=== PATIENT | male | born 1940 | race Caucasian/White ===

== ENCOUNTER 2016-08-05 08:36 | Outpatient (CLI) | payer MEDICARE, OTHER | END 2016-08-05 08:37 | disposition home or self-care (01) | DX: I48.91 Unspecified atrial fibrillation (principal) ==

== ENCOUNTER 2016-09-25 10:28 | Outpatient (CLI) | payer MEDICARE, OTHER | END 2016-09-25 10:29 | disposition home or self-care (01) | DX: I48.91 Unspecified atrial fibrillation (principal) ==

== ENCOUNTER 2016-10-03 15:05 | Outpatient (CLI) | payer MEDICARE, OTHER | END 2016-10-03 15:06 | disposition home or self-care (01) | LOC: LAB.F 15:05 | PROVIDERS: ATTEND Internal Medicine Cardiovascular Disease | DX: I48.91 Unspecified atrial fibrillation (principal) | CPT/HCPCS: 85610 ==

== ENCOUNTER 2016-11-27 09:32 | Outpatient (CLI) | payer MEDICARE, OTHER | END 2016-11-27 09:33 | disposition home or self-care (01) | LOC: LAB.F 09:32 | PROVIDERS: ATTEND Internal Medicine Cardiovascular Disease | DX: I48.91 Unspecified atrial fibrillation (principal) | CPT/HCPCS: 85610 ==

== ENCOUNTER 2017-02-16 08:05 | Outpatient (CLI) | payer MEDICARE, OTHER | END 2017-02-16 08:06 | disposition home or self-care (01) | LOC: LAB.F 08:05 | PROVIDERS: ATTEND Internal Medicine Cardiovascular Disease | DX: I48.91 Unspecified atrial fibrillation (principal) | CPT/HCPCS: 85610 ==

== ENCOUNTER 2017-04-07 11:25 | Outpatient (CLI) | payer MEDICARE, OTHER | END 2017-04-07 11:26 | disposition home or self-care (01) | LOC: LAB.F 11:25 | PROVIDERS: ATTEND Internal Medicine Cardiovascular Disease | DX: I48.91 Unspecified atrial fibrillation (principal) | CPT/HCPCS: 85610 ==

== ENCOUNTER 2017-07-18 12:32 | Outpatient (CLI) | payer MEDICARE, OTHER | END 2017-07-18 12:33 | disposition home or self-care (01) | LOC: LAB 12:32 | PROVIDERS: ATTEND Internal Medicine Cardiovascular Disease | DX: I48.91 Unspecified atrial fibrillation (principal) | CPT/HCPCS: 85610 ==

== ENCOUNTER 2017-09-09 11:16 | Outpatient (CLI) | payer MEDICARE, OTHER | END 2017-09-09 11:17 | disposition home or self-care (01) | LOC: LAB.F 11:16 | PROVIDERS: ATTEND Internal Medicine Cardiovascular Disease | DX: I48.91 Unspecified atrial fibrillation (principal) | CPT/HCPCS: 85610 ==

== ENCOUNTER 2017-09-22 08:00 | Outpatient (CLI) | payer MEDICARE, OTHER ==
[2017-09-22 17:40] LABS: PT - PROTHROMBIN TIME 107.9 secs (9.9-12.6)
[2017-09-22 17:55] LABS: INR 10.5 (0.8-1.2)
== END 2017-09-22 08:01 | disposition home or self-care (01) ==
LOC: LAB.F 08:00
PROVIDERS: ATTEND Internal Medicine Cardiovascular Disease
DX: I48.91 Unspecified atrial fibrillation (principal)
CPT/HCPCS: 36415; 85610

== ENCOUNTER 2017-09-25 10:25 | Outpatient (CLI) | payer MEDICARE, OTHER | END 2017-09-25 10:26 | disposition home or self-care (01) | LOC: LAB.F 10:25 | PROVIDERS: ATTEND Pharmacist | DX: I48.91 Unspecified atrial fibrillation (principal); Z79.01 Long term (current) use of anticoagulants | CPT/HCPCS: 85610 ==

== ENCOUNTER 2017-10-01 13:43 | Outpatient (CLI) | payer MEDICARE, OTHER | END 2017-10-01 13:44 | disposition home or self-care (01) | LOC: LAB.F 13:43 | PROVIDERS: ATTEND Pharmacist | DX: I48.91 Unspecified atrial fibrillation (principal); Z79.01 Long term (current) use of anticoagulants | CPT/HCPCS: 85610 ==

== ENCOUNTER 2017-11-06 14:53 | Outpatient (CLI) | payer MEDICARE, OTHER | END 2017-11-06 14:54 | disposition home or self-care (01) | LOC: LAB.F 14:53 | PROVIDERS: ATTEND Pharmacist | DX: I48.91 Unspecified atrial fibrillation (principal); Z79.01 Long term (current) use of anticoagulants | CPT/HCPCS: 85610 ==

== ENCOUNTER 2017-11-12 09:59 | Outpatient (CLI) | payer MEDICARE, OTHER | END 2017-11-12 10:00 | disposition home or self-care (01) | LOC: LAB.F 09:59 | PROVIDERS: ATTEND Pharmacist | DX: I48.91 Unspecified atrial fibrillation (principal); Z79.01 Long term (current) use of anticoagulants | CPT/HCPCS: 85610 ==

== ENCOUNTER 2017-11-20 09:25 | Outpatient (CLI) | payer MEDICARE, OTHER | END 2017-11-20 09:26 | disposition home or self-care (01) | LOC: LAB.F 09:25 | PROVIDERS: ATTEND Pharmacist | DX: I48.91 Unspecified atrial fibrillation (principal); Z79.01 Long term (current) use of anticoagulants | CPT/HCPCS: 85610 ==

== ENCOUNTER 2017-12-30 14:37 | Outpatient (CLI) | payer MEDICARE, OTHER | END 2017-12-30 14:38 | disposition home or self-care (01) | LOC: LAB.F 14:37 | PROVIDERS: ATTEND Pharmacist | DX: I48.91 Unspecified atrial fibrillation (principal); Z79.01 Long term (current) use of anticoagulants | CPT/HCPCS: 85610 ==

== ENCOUNTER 2018-01-15 15:38 | Outpatient (CLI) | payer MEDICARE, OTHER | END 2018-01-15 15:39 | disposition home or self-care (01) | LOC: LAB.F 15:38 | PROVIDERS: ATTEND Pharmacist | DX: I48.91 Unspecified atrial fibrillation (principal); Z79.01 Long term (current) use of anticoagulants | CPT/HCPCS: 85610 ==

== ENCOUNTER 2018-01-18 07:50 | Emergency (ER) | payer MEDICARE, OTHER ==
[2018-01-18 08:02] VITALS: BP 121/89
--- NOTE | 2018-01-18 08:02 | ED Physician Documentation ---
PD HPI SKIN - Stated complaint Stated Complaint: LEFT ELBOW PX - History obtained from History obtained from: Patient - History of Present Illness Timing - onset: Yesterday Timing - duration: Days (1) Timing - details: Gradual onset, Still present Location: LUE Quality / character: Painful, Discolored, Swelling Associated symptoms: No: Fever, Myalgias, Joint pain Contributing factors: Other (recent injury to the elbow) Similar symptoms before: Diagnosis (cellulitis) Recently seen: Not recently seen - Additional information Additional information: 77-year-old male previously well as fallen and injured his left elbow about 1 week ago. Yesterday he began to notice that the elbow was swollen red and tender. He has not had fever or vomiting. He has had some similar incident with a right elbow about 4 years ago at that time he was treated with Septra. He does not recall this incident and does not recall having to change antibiotic. Review of Systems Constitutional: denies: Fever Throat: denies: Sore throat Respiratory: denies: Cough GI: denies: Vomiting : denies: Dysuria Skin: denies: Rash Musculoskeletal: reports: Extremity pain, Extremity swelling. denies: Neck pain, Back pain Neurologic: denies: Generalized weakness, Focal weakness, Numbness PD PAST MEDICAL HISTORY - Past Medical History Cardiovascular: Hypertension, High cholesterol, Coronary artery disease Endocrine/Autoimmune: Type 2 diabetes - Past Surgical History Past Surgical History: Yes Cardiovascular: Coronary stent, AAA - Present Medications Home Medications: Ambulatory Orders Medication Instructions Recorded Confirmed Atorvastatin [Lipitor] 02/13/14 02/13/14 Losartan [Cozaar] 02/13/14 02/13/14 Metformin HCl 500 mg PO BID 02/13/14 02/13/14 Metoprolol Tartrate 02/13/14 02/13/14 Pioglitazone [Actos] 45 mg PO DAILY 02/13/14 02/13/14 Sulfamethoxazole/Trimethoprim 1 each PO BID #14 tablet 02/13/14 [Sulfamethoxazole-Tmp Ds Tablet] Sulfamethoxazole/Trimethoprim 1 each PO BID #14 tablet 01/18/18 [Sulfamethoxazole-Tmp Ds Tablet] - Allergies Allergies/Adverse Reactions: Allergies Allergy/AdvReac Type Severity Reaction Status Date / Time No Known Drug Allergies Allergy Verified 02/13/14 10:59 - Social History Does the pt smoke?: No Smoking Status: Never smoker Does the pt drink ETOH?: Yes Does the pt have substance abuse?: No - POLST Patient has POLST: No PD ED PE NORMAL - Vitals Vital signs reviewed: Yes - General General: Alert and oriented X 3, No acute distress, Well developed/nourished - HEENT HEENT: Atraumatic, PERRL - Respiratory Respiratory: No respiratory distress - Back Back: No CVA TTP, No spinal TTP - Derm Derm: Normal color, Warm and dry, No rash - Extremities Extremities: Other (over the left elbow there is erythema and swelling without fluctuance. There is are three small abrasions to the elbow as well. There is no lymphangitic streaking and no axillary lymphadenopathy. The distal n/v is intact. The ROM of the elbow is intact. 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 This does not appear to be into the joint space or to the bursa. - Sepsis Event Vital Signs: Oxygen O2 Source Room air Departure - Departure Disposition: 01 Home, Self Care Clinical Impression: Cellulitis Condition: Stable Instructions: ED Infec Skin Cellulitis Follow-Up: Heather Partida MD [Primary Care Provider] - Prescriptions: Sulfamethoxazole/Trimethoprim [Sulfamethoxazole-Tmp Ds Tablet] 1 each PO BID #14 tablet
== END 2018-01-18 08:10 | disposition home or self-care (01) ==
LOC: ED 07:50
DX: L03.114 Cellulitis of left upper limb (principal); I10 Essential (primary) hypertension; I25.10 Atherosclerotic heart disease of native coronary artery without angina pectoris; E11.9 Type 2 diabetes mellitus without complications; Z95.5 Presence of coronary angioplasty implant and graft; Z79.84 Long term (current) use of oral hypoglycemic drugs
CPT/HCPCS: 99283

== ENCOUNTER 2018-01-22 11:50 | Outpatient (CLI) | payer MEDICARE, OTHER | END 2018-01-22 11:51 | disposition home or self-care (01) | LOC: LAB.F 11:50 | PROVIDERS: ATTEND Pharmacist | DX: I48.91 Unspecified atrial fibrillation (principal); Z79.01 Long term (current) use of anticoagulants | CPT/HCPCS: 85610 ==

== ENCOUNTER 2018-02-04 13:46 | Outpatient (CLI) | payer MEDICARE, OTHER | END 2018-02-04 13:47 | disposition home or self-care (01) | LOC: LAB.F 13:46 | PROVIDERS: ATTEND Pharmacist | DX: I48.91 Unspecified atrial fibrillation (principal); Z79.01 Long term (current) use of anticoagulants | CPT/HCPCS: 85610 ==

== ENCOUNTER 2018-03-03 11:30 | Outpatient (CLI) | payer MEDICARE, OTHER | END 2018-03-03 11:31 | disposition home or self-care (01) | LOC: LAB.F 11:30 | PROVIDERS: ATTEND Pharmacist | DX: I48.91 Unspecified atrial fibrillation (principal); Z79.01 Long term (current) use of anticoagulants | CPT/HCPCS: 85610 ==

== ENCOUNTER 2018-03-26 08:00 | Outpatient (CLI) | payer MEDICARE, OTHER | END 2018-03-26 23:59 | disposition home or self-care (01) | LOC: LAB.F 08:00 | PROVIDERS: ATTEND Pharmacist | DX: I48.91 Unspecified atrial fibrillation (principal); Z79.01 Long term (current) use of anticoagulants | CPT/HCPCS: 85610 ==

== ENCOUNTER 2018-05-21 15:07 | Outpatient (CLI) | payer MEDICARE, OTHER | END 2018-05-21 15:08 | disposition home or self-care (01) | LOC: LAB.F 15:07 | PROVIDERS: ATTEND Pharmacist | DX: I48.91 Unspecified atrial fibrillation (principal); Z79.01 Long term (current) use of anticoagulants | CPT/HCPCS: 85610 ==

== ENCOUNTER 2018-06-28 11:13 | Outpatient (CLI) | payer MEDICARE, OTHER | END 2018-06-28 11:14 | disposition home or self-care (01) | LOC: LAB.F 11:13 | PROVIDERS: ATTEND Pharmacist | DX: I48.91 Unspecified atrial fibrillation (principal); Z79.01 Long term (current) use of anticoagulants | CPT/HCPCS: 85610 ==

== ENCOUNTER 2018-07-09 10:53 | Outpatient (CLI) | payer MEDICARE, OTHER | END 2018-07-09 10:54 | disposition home or self-care (01) | LOC: LAB.F 10:53 | PROVIDERS: ATTEND Pharmacist | DX: I48.91 Unspecified atrial fibrillation (principal); Z79.01 Long term (current) use of anticoagulants | CPT/HCPCS: 85610 ==

== ENCOUNTER 2018-08-06 13:51 | Outpatient (CLI) | payer MEDICARE, OTHER | END 2018-08-06 13:52 | disposition home or self-care (01) | LOC: LAB.F 13:51 | PROVIDERS: ATTEND Pharmacist | DX: I48.91 Unspecified atrial fibrillation (principal); Z79.01 Long term (current) use of anticoagulants | CPT/HCPCS: 85610 ==

== ENCOUNTER 2018-08-27 14:17 | Outpatient (CLI) | payer MEDICARE, OTHER ==
[2018-08-27 17:34] LABS: CALCIUM 9.8 mg/dL (8.5-10.3); CREATININE 1.6 mg/dL (0.6-1.2)
== END 2018-08-27 14:18 | disposition home or self-care (01) ==
LOC: LAB.F 14:17
PROVIDERS: ATTEND Pharmacist
DX: I48.91 Unspecified atrial fibrillation (principal); I25.10 Atherosclerotic heart disease of native coronary artery without angina pectoris; Z79.01 Long term (current) use of anticoagulants
CPT/HCPCS: 36415; 80048; 83880; 85610

== ENCOUNTER 2018-10-11 14:53 | Outpatient (CLI) | payer MEDICARE, OTHER | END 2018-10-11 14:54 | disposition home or self-care (01) | LOC: LAB.F 14:53 | PROVIDERS: ATTEND Pharmacist | DX: I48.91 Unspecified atrial fibrillation (principal); Z79.01 Long term (current) use of anticoagulants | CPT/HCPCS: 85610 ==

== ENCOUNTER 2018-11-18 13:44 | Outpatient (CLI) | payer MEDICARE, OTHER | END 2018-11-18 13:45 | disposition home or self-care (01) | LOC: LAB.S 13:44 | PROVIDERS: ATTEND Pharmacist | DX: I48.91 Unspecified atrial fibrillation (principal); Z79.01 Long term (current) use of anticoagulants | CPT/HCPCS: 85610 ==

== ENCOUNTER 2018-12-09 09:33 | Outpatient (CLI) | payer MEDICARE, OTHER ==
[2018-12-09 17:40] LABS: BUN - BLOOD UREA NITROGEN 23 mg/dL (6-20); CALCIUM 9.5 mg/dL (8.5-10.3); CARBON DIOXIDE - CO2 29 mmol/L (21-32); CHLORIDE 103 mmol/L (101-111); CHOL/HDL RATIO 4.7 (<5.0); CHOLESTEROL 128 mg/dL; CREATININE 1.3 mg/dL (0.6-1.2); GFR - MDRD 53 (>89); GLUCOSE 149 mg/dL (70-100); HDL CHOLESTEROL 27 mg/dL; LDL CHOLESTEROL,CALCULATED 71 mg/dL; LDL/HDL RATIO 2.6 (<3.6); SODIUM 142 mmol/L (135-145); VLDL CHOLESTEROL 30 mg/dL
[2018-12-09 18:22] LABS: HB2 TOTAL 15.6 g/dL; HEMOGLOBIN A1C 0.81 g/dL; HEMOGLOBIN A1C % 6.9 % (4.6-6.2)
== END 2018-12-09 09:34 | disposition home or self-care (01) ==
LOC: LAB.S 09:33
PROVIDERS: ATTEND Internal Medicine
DX: E11.65 Type 2 diabetes mellitus with hyperglycemia (principal); E78.5 Hyperlipidemia, unspecified; I25.10 Atherosclerotic heart disease of native coronary artery without angina pectoris
CPT/HCPCS: 36415; 80048; 80061; 83036; 83721

== ENCOUNTER 2019-01-01 12:21 | Outpatient (CLI) | payer MEDICARE, OTHER | END 2019-01-01 12:22 | disposition home or self-care (01) | LOC: LAB 12:21 | PROVIDERS: ATTEND Pharmacist | DX: I48.91 Unspecified atrial fibrillation (principal); Z79.01 Long term (current) use of anticoagulants | CPT/HCPCS: 85610 ==

== ENCOUNTER 2019-02-04 11:54 | Outpatient (CLI) | payer MEDICARE, OTHER | END 2019-02-04 11:55 | disposition home or self-care (01) | LOC: LAB.S 11:54 | PROVIDERS: ATTEND Pharmacist | DX: I48.91 Unspecified atrial fibrillation (principal); Z79.01 Long term (current) use of anticoagulants | CPT/HCPCS: 85610 ==

== ENCOUNTER 2019-03-14 11:13 | Outpatient (CLI) | payer MEDICARE, OTHER | END 2019-03-14 11:14 | disposition home or self-care (01) | LOC: LAB.S 11:13 | PROVIDERS: ATTEND Pharmacist | DX: I48.91 Unspecified atrial fibrillation (principal); Z79.01 Long term (current) use of anticoagulants | CPT/HCPCS: 85610 ==

== ENCOUNTER 2019-04-15 11:31 | Outpatient (CLI) | payer MEDICARE, OTHER | END 2019-04-15 11:32 | disposition home or self-care (01) | LOC: LAB.S 11:31 | PROVIDERS: ATTEND Pharmacist | DX: I48.91 Unspecified atrial fibrillation (principal); Z79.01 Long term (current) use of anticoagulants | CPT/HCPCS: 85610 ==

== ENCOUNTER 2019-05-25 09:31 | Outpatient (CLI) | payer MEDICARE, OTHER | END 2019-05-25 09:32 | disposition home or self-care (01) | LOC: LAB.S 09:31 | PROVIDERS: ATTEND Pharmacist | DX: I48.91 Unspecified atrial fibrillation (principal); Z79.01 Long term (current) use of anticoagulants | CPT/HCPCS: 85610 ==

== ENCOUNTER 2019-06-09 11:32 | Outpatient (CLI) | payer MEDICARE, OTHER | END 2019-06-09 11:33 | disposition home or self-care (01) | LOC: LAB.S 11:32 | PROVIDERS: ATTEND Pharmacist | DX: I48.91 Unspecified atrial fibrillation (principal); Z79.01 Long term (current) use of anticoagulants | CPT/HCPCS: 85610 ==

== ENCOUNTER 2019-07-06 08:15 | Outpatient (CLI) | payer MEDICARE, OTHER ==
[2019-07-06] MEDS ORDERED: IOVERSOL 320 100 ML VIAL IVP ONE ×2 (08:35→13:08)
--- NOTE | 2019-07-06 09:55 | CT Report ---
Reason: SUB ARACHNOID HEMORRHAGE Procedure Date: 07/06/2019 Accession Number: [id number] / [id number] Procedure: CT - ANGIO NECK W CPT Code: Final Report FULL RESULT: EXAM: CT ANGIOGRAM NECK EXAM DATE: 07/06/2019 09:09 AM. CLINICAL HISTORY: Subarachnoid hemorrhage. COMPARISON: CT angiogram head from today. CT head 06/17/2019. TECHNIQUE: Routine axial helical imaging was performed from the skull base through the aortic arch. Reconstructions: Routine multiplanar 3D MIP reconstructions. IV Contrast: 80 mL Optiray 320. Evaluation of arterial stenosis is based on a NASCET method of measurement. In accordance with CT protocol optimization, one or more of the following dose reduction techniques were utilized for this exam: automated exposure control, adjustment of mA and/or KV based on patient size, or use of iterative reconstructive technique. FINDINGS: Right Carotid: Mild atherosclerotic plaque is seen in the proximal cervical ICA. No significant narrowing is seen in the CCA or cervical ICA. Left Carotid: Mild atherosclerotic plaque is seen in the proximal cervical ICA. No significant narrowing is seen in the CCA or cervical ICA Vertebrals: No significant narrowing is present in either cervical vertebral artery. Great vessel origins: Atherosclerotic plaque is seen in the distal transverse and proximal descending thoracic aorta. No significant great vessel origin stenosis is present. Intracranial Circulation: The reader is referred to the patient's CT angiogram head performed today and dictated under separate cover. Other: The thyroid gland is not enlarged. No subglottic stenosis is present. No mass is present in either carotid gland or in either submandibular gland No nasopharyngeal mass is present. No mass is present in either orbit. No bulky lymphadenopathy is identified along either internal jugular chain. No suspicious spiculated mass is present in either lung apex. Severe degenerative disk disease and osteophyte formation are present from C3-C7. 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 Multilevel foraminal stenosis is seen in the cervical spine. IMPRESSION: 1. Mild atherosclerotic plaque is seen in each proximal cervical ICA without significant narrowing seen in either cervical ICA. 2. No significant narrowing is seen in either cervical vertebral artery. 3. Severe degenerative disk disease and osteophyte formation from C3-C7. RADIA
--- NOTE | 2019-07-06 10:01 | CT Report ---
Reason: SUB ARACHNOID HEMORRHAGE Procedure Date: 07/06/2019 Accession Number: [id number] / [id number] Procedure: CT - ANGIO HEAD W/WO CPT Code: Final Report FULL RESULT: EXAM: CT ANGIOGRAM HEAD. CT SCAN OF THE HEAD WITHOUT AND WITH CONTRAST. EXAM DATE: 07/06/2019 09:09 AM CLINICAL HISTORY: SUB ARACHNOID HEMORRHAGE. COMPARISON: CT HEAD OR BRAIN WO IV CONTRAST 06/17/2019 3:[address] HEAD W/O CONTRAST 06/16/2019 7:12 PM. TECHNIQUE: - CT Scan Head: Using a multidetector scanner, axial images were acquired from the foramen magnum to the skull vertex prior to and following contrast administration. - CT Angiogram: Using a multidetector scanner, high-resolution axial images were acquired from the skull base through vertex following rapid infusion of intravenous contrast. Reformats: Multiplanar MIP reformats were reconstructed. NASCET criteria used for stenosis measurement. IV Contrast: 80 mL OPTIRAY 320. In accordance with CT protocol optimization, one or more of the following dose reduction techniques were utilized for this exam: automated exposure control, adjustment of mA and/or KV based on patient size, or use of iterative reconstructive technique. FINDINGS: NON-CONTRAST HEAD: [address] there is a pineal region hemorrhage and scattered small volume subarachnoid hemorrhage within sulci overlying bilateral cerebral hemispheres and within posterior sylvian fissures bilaterally. Hemorrhage has resolved. Parenchyma: No intraparenchymal hemorrhage. Mild low density involving white matter of cerebral hemispheres bilaterally. Extraaxial Spaces: Mild prominence of the lateral ventricles. No mass-effect. No midline shift. No subdural or epidural collections identified. Sinuses and orbits: Imaged paranasal sinuses, orbits, and mastoids show no significant abnormality. Bones: No evidence of fracture or calvarial defect. Other: None. POST-CONTRAST HEAD: No abnormal enhancement. CT ANGIOGRAM HEAD: No evidence of aneurysm or vascular malformation. Calcification with mild narrowing of bilateral V4 vertebral segments. Tortuosity of basilar artery without significant stenosis. DURAL VENOUS SINUSES AND MAJOR CENTRAL VEINS: Patent. IMPRESSION: CT Head: Resolution of pineal region and subarachnoid hemorrhage. No new hemorrhage. No CT evidence of pineal region mass. No abnormal enhancement. Mild microvascular white matter disease. CTA Head: No evidence of aneurysm or vascular malformation. RADIA
== END 2019-07-06 08:16 | disposition home or self-care (01) ==
LOC: DI 08:15
PROVIDERS: ATTEND Neurological Surgery
DX: I65.23 Occlusion and stenosis of bilateral carotid arteries (principal); M50.31 Other cervical disc degeneration, high cervical region; R90.82 White matter disease, unspecified; I72.9 Aneurysm of unspecified site
CPT/HCPCS: 36415; 70496; 70498; 82565; Q9967

== ENCOUNTER 2019-09-15 12:20 | Outpatient (CLI) | payer MEDICARE, OTHER | END 2019-09-15 12:21 | disposition home or self-care (01) | LOC: LAB 12:20 | PROVIDERS: ATTEND Pharmacist | DX: I48.91 Unspecified atrial fibrillation (principal); Z79.01 Long term (current) use of anticoagulants | CPT/HCPCS: 85610 ==

== ENCOUNTER 2019-10-26 12:12 | Outpatient (CLI) | payer MEDICARE, OTHER | END 2019-10-26 12:13 | disposition home or self-care (01) | LOC: LAB 12:12 | PROVIDERS: ATTEND Pharmacist | DX: I48.91 Unspecified atrial fibrillation (principal); Z79.01 Long term (current) use of anticoagulants | CPT/HCPCS: 85610 ==

== ENCOUNTER 2019-12-31 12:26 | Outpatient (CLI) | payer MEDICARE, OTHER | END 2019-12-31 12:27 | disposition short-term general hospital (02) | LOC: EMS 12:26 | PROVIDERS: ATTEND Surgery | DX: R42 Dizziness and giddiness (principal); R53.1 Weakness; R00.1 Bradycardia, unspecified | CPT/HCPCS: A0425; A0427 ==

== ENCOUNTER 2020-02-02 15:00 | Outpatient (CLI) | payer MEDICARE, OTHER | END 2020-02-02 15:01 | disposition short-term general hospital (02) | LOC: EMS 15:00 | PROVIDERS: ATTEND Surgery | DX: R09.89 Other specified symptoms and signs involving the circulatory and respiratory systems (principal); Z95.810 Presence of automatic (implantable) cardiac defibrillator | CPT/HCPCS: A0425; A0427 ==

== ENCOUNTER 2020-02-17 08:53 | Outpatient (CLI) | payer MEDICARE, OTHER ==
[2020-02-17 09:59] LABS: PT - PROTHROMBIN TIME 109.4 secs (9.9-12.6)
[2020-02-17 10:02] LABS: CALCIUM 9.4 mg/dL (8.5-10.3); CREATININE 0.9 mg/dL (0.6-1.2)
[2020-02-17 10:10] LABS: INR > 10.0 (0.8-1.2)
== END 2020-02-17 08:54 | disposition home or self-care (01) ==
LOC: LAB 08:53
PROVIDERS: ATTEND Pharmacist
DX: I42.9 Cardiomyopathy, unspecified (principal); I48.91 Unspecified atrial fibrillation; Z79.01 Long term (current) use of anticoagulants
CPT/HCPCS: 36415; 80048; 85610

== ENCOUNTER 2020-02-20 12:10 | Outpatient (CLI) | payer MEDICARE, OTHER | END 2020-02-20 12:11 | disposition home or self-care (01) | LOC: LAB 12:10 | PROVIDERS: ATTEND Pharmacist | DX: I48.91 Unspecified atrial fibrillation (principal); Z79.01 Long term (current) use of anticoagulants | CPT/HCPCS: 85610 ==

== ENCOUNTER 2020-04-09 08:15 | Outpatient (CLI) | payer MEDICARE, OTHER ==
[2020-04-09 08:49] LABS: CALCIUM 9.9 mg/dL (8.5-10.3); CREATININE 0.9 mg/dL (0.6-1.2)
== END 2020-04-09 08:16 | disposition home or self-care (01) ==
LOC: LAB 08:15
PROVIDERS: ATTEND Physician Assistant
DX: I25.10 Atherosclerotic heart disease of native coronary artery without angina pectoris (principal); I42.9 Cardiomyopathy, unspecified; I50.20 Unspecified systolic (congestive) heart failure; I48.21 Permanent atrial fibrillation
CPT/HCPCS: 36415; 80048

== ENCOUNTER 2021-03-07 08:37 | Emergency (ER) | payer MEDICARE, OTHER ==
[2021-03-07] MEDS ORDERED: SODIUM CHLORIDE 0.9% 1,000 ML IV STA ×2 (09:20→11:28)
--- NOTE | 2021-03-07 09:22 | ED Physician Documentation ---
PD HPI NVD - Stated complaint Stated Complaint: NAUSEA/DIARRHEA - Chief complaint Chief Complaint: Abd Pain - History obtained from History obtained from: Patient - History of Present Illness Timing - onset: How many days ago (5) Timing - duration: Days (5) Timing - details: Abrupt onset, Still present Associated symptoms: Loss of appetite. No: Fever, Abdominal pain, Chest pain, Hematemesis, Melena, Near syncope / syncope Contributing factors: Other (had a flu shot the day prior to onset of sympoms). No: Sick contact, Recent antibiotics Improved by: BM Similar symptoms before: Has not had sx before Recently seen: Not recently seen - Additonal information Additional information: 80-year-old male reports that he has had diarrhea for the past 5 days and he feels a bit dehydrated. He does not have much in the way of pain he did have vomiting x1. He is uncertain what caused this but he denies any blood in his stool denies any fever. Review of Systems Constitutional: denies: Fever, Chills Eyes: denies: Decreased vision Ears: denies: Ear pain Nose: denies: Congestion Throat: denies: Sore throat Cardiac: denies: Chest pain / pressure, Palpitations, Pedal edema, Calf pain Respiratory: denies: Dyspnea, Cough GI: reports: Vomiting (one), Diarrhea (5-6 times per day). denies: Abdominal Pain, Nausea : denies: Dysuria, Frequency Skin: denies: Rash Musculoskeletal: denies: Neck pain, Back pain, Extremity pain Neurologic: denies: Generalized weakness, Focal weakness, Numbness, Difficulty speaking PD PAST MEDICAL HISTORY - Past Medical History Cardiovascular: Hypertension, High cholesterol, Coronary artery disease Endocrine/Autoimmune: Type 2 diabetes - Past Surgical History Past Surgical History: Yes Cardiovascular: Coronary stent, AAA - Present Medications Home Medications: Ambulatory Orders Medication Instructions Recorded Confirmed Atorvastatin [Lipitor] 02/13/14 02/13/14 Losartan [Cozaar] 02/13/14 02/13/14 Metformin HCl 500 mg PO BID 02/13/14 02/13/14 Metoprolol Tartrate 02/13/14 02/13/14 Pioglitazone [Actos] 45 mg PO DAILY 02/13/14 02/13/14 Sulfamethoxazole/Trimethoprim 1 each PO BID #14 tablet 02/13/14 [Sulfamethoxazole-Tmp Ds Tablet] Sulfamethoxazole/Trimethoprim 1 each PO BID #14 tablet 01/18/18 [Sulfamethoxazole-Tmp Ds Tablet] - Allergies Allergies/Adverse Reactions: Allergies Allergy/AdvReac Type Severity Reaction Status Date / Time No Known Drug Allergies Allergy Verified 03/07/21 08:45 - Social History Does the pt smoke?: No Smoking Status: Never smoker Does the pt drink ETOH?: Yes Does the pt have substance abuse?: No - POLST Patient has POLST: No PD ED PE NORMAL - Vitals Vital signs reviewed: Yes (hypotensive) - General General: Alert and oriented X 3, No acute distress, Well developed/nourished - HEENT HEENT: Atraumatic, PERRL, EOMI - Neck Neck: Supple, no meningeal sign, No bony TTP - Cardiac Cardiac: RRR, No murmur - Respiratory Respiratory: No respiratory distress, Clear bilaterally - Abdomen Abdomen: Normal bowel sounds, Soft, Non tender, No organomegaly, Other (gaseous distention is present non-tender. 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, No motor deficit, No sensory deficit, Normal speech Eye Opening: Spontaneous Motor: Obeys Commands Verbal: Oriented GCS Score: 15 - Psych Psych: Normal mood, Normal affect Results - Vitals Vitals: Vital Signs - 24 hr 03/07/21 03/07/21 03/07/21 08:42 10:38 12:00 Temperature 36.2 C L 36.5 C Heart Rate 59 L 60 60 Respiratory 16 20 16 Rate Blood Pressure 98/55 L 90/60 96/60 O2 Saturation 100 99 98 Oxygen O2 Source Room air - Labs Labs: Laboratory Tests 03/07/21 03/07/21 03/07/21 09:43 09:43 09:43 WBC 6.1 RBC 4.07 L Hgb 13.8 L Hct 40.0 L MCV 98.3 H MCH 33.9 H MCHC 34.5 RDW 13.5 Plt Count 130 MPV 10.7 Neut # (Auto) 4.5 Lymph # (Auto) 0.9 L [place] # (Auto) 0.5 Eos # (Auto) 0.2 Baso # (Auto) 0.0 Absolute Nucleated RBC 0.00 Nucleated RBC % 0.0 Sodium 139 Potassium 3.7 Chloride 104 Carbon Dioxide 26 Anion Gap 9.0 BUN 33 H Creatinine 1.7 H Estimated GFR (MDRD) 39 L Glucose 242 H Lactic Acid 2.7 H Calcium 8.8 Total Bilirubin 1.0 AST 23 ALT 19 Alkaline Phosphatase 50 Total Protein 6.1 L Albumin 3.4 Globulin 2.7 Albumin/Globulin Ratio 1.3 Lipase 35 Procedures - IVC sono (time) 0920 Bedside IVC sono: IVC measures (cm) (0.70), Dehydration (est 2+ liter deficit) PD MEDICAL DECISION MAKING - ED course Complexity details: considered differential, d/w patient ED course: 80-year-old male with diarrhea for the past 5 days is dehydrated. He looks like about 2+ liters deficit on interrogation the inferior vena cava he does have a history of congestive heart failure and atrial fibrillation. He is administered intravenous saline. He is administered a liter of saline rapidly and the second liter is put in at 300 mL/h and he does not receive the entire infusion. Departure - Departure Disposition: 01 Home, Self Care Clinical Impression: Dehydration, Gastroenteritis Condition: Stable Instructions: ED Dehydration, ED Gastroenteritis Viral Follow-Up: Jesus Osorio MD [Primary Care Provider] - Discharge Date/Time: 03/07/21 12:44
[2021-03-07 09:49] LABS: BASOPHILS % (AUTO) 0.3 %; EOSINOPHILS # (AUTO) 0.2 10^3/uL (0.0-0.7); HGB - HEMOGLOBIN 13.8 g/dL (14.0-18.0); LYMPHOCYTES # (AUTO) 0.9 10^3/uL (1.5-3.5); LYMPHOCYTES % (AUTO) 14.6 %; MEAN CORPUSCULAR HEMOGLOBIN 33.9 pg (27.0-31.0); MEAN CORPUSCULAR HGB CONC 34.5 g/dL (32.0-36.0); MEAN CORPUSCULAR VOLUME 98.3 fL (80.0-94.0); MEAN PLATELET VOLUME 10.7 fL (7.4-11.4); MONOCYTES # (AUTO) 0.5 10^3/uL (0.0-1.0); MONOCYTES % (AUTO) 8.2 %; NEUTROPHILS # (AUTO) 4.5 10^3/uL (1.5-6.6); NEUTROPHILS % (AUTO) 73.7 %; PLT - PLATELET COUNT 130 10^3/uL (130-450); RED BLOOD COUNT 4.07 10^6/uL (4.70-6.10); RED CELL DISTRIBUTION WIDTH 13.5 % (12.0-15.0); WHITE BLOOD COUNT 6.1 x10^3/uL (4.8-10.8)
[2021-03-07 10:03] LABS: ALBUMIN 3.4 g/dL (3.2-5.5); ALBUMIN/GLOBULIN RATIO 1.3 (1.0-2.2); CALCIUM 8.8 mg/dL (8.5-10.3); CREATININE 1.7 mg/dL (0.6-1.2); POTASSIUM 3.7 mmol/L (3.5-5.0); TOTAL PROTEIN 6.1 g/dL (6.7-8.2)
[2021-03-07 12:43] VITALS: BP 96/60
== END 2021-03-07 12:44 | disposition home or self-care (01) ==
LOC: ED 08:37
DX: E86.0 Dehydration (principal); K52.9 Noninfective gastroenteritis and colitis, unspecified; I10 Essential (primary) hypertension; E11.9 Type 2 diabetes mellitus without complications; Z79.84 Long term (current) use of oral hypoglycemic drugs; Z86.79 Personal history of other diseases of the circulatory system
CPT/HCPCS: 36415; 80053; 83605; 83690; 85025; 96360; 99282

== ENCOUNTER 2021-07-25 13:02 | Emergency (ER) | payer MEDICARE, OTHER ==
[2021-07-25 13:38] VITALS: BP 106/68
[2021-07-25 13:53] LABS: BASOPHILS # (AUTO) 0.1 10^3/uL (0.0-0.1); EOSINOPHILS # (AUTO) 0.2 10^3/uL (0.0-0.7); EOSINOPHILS % (AUTO) 4.5 %; HCT - HEMATOCRIT 45.6 % (42.0-52.0); HGB - HEMOGLOBIN 15.6 g/dL (14.0-18.0); LYMPHOCYTES # (AUTO) 1.1 10^3/uL (1.5-3.5); LYMPHOCYTES % (AUTO) 22.5 %; MEAN CORPUSCULAR HEMOGLOBIN 33.7 pg (27.0-31.0); MEAN CORPUSCULAR HGB CONC 34.2 g/dL (32.0-36.0); MEAN CORPUSCULAR VOLUME 98.5 fL (80.0-94.0); MEAN PLATELET VOLUME 10.4 fL (7.4-11.4); MONOCYTES # (AUTO) 0.5 10^3/uL (0.0-1.0); MONOCYTES % (AUTO) 9.3 %; NEUTROPHILS % (AUTO) 62.3 %; PLT - PLATELET COUNT 154 10^3/uL (130-450); RED BLOOD COUNT 4.63 10^6/uL (4.70-6.10); RED CELL DISTRIBUTION WIDTH 12.8 % (12.0-15.0); WHITE BLOOD COUNT 4.8 x10^3/uL (4.8-10.8)
[2021-07-25 14:15] LABS: ALBUMIN 4.3 g/dL (3.2-5.5); ALBUMIN/GLOBULIN RATIO 1.3 (1.0-2.2); BILIRUBIN,TOTAL 0.8 mg/dL (0.2-1.0); CALCIUM 9.3 mg/dL (8.5-10.3); CREATININE 1.4 mg/dL (0.6-1.2); POTASSIUM 4.3 mmol/L (3.5-5.0); TOTAL PROTEIN 7.7 g/dL (6.7-8.2)
--- NOTE | 2021-07-25 14:18 | ED Physician Documentation ---
History of Present Illness - Stated complaint Stated Complaint: BACK PX - Chief complaint Chief Complaint: Back Pain - Additonal information Additional information: 80-year-old male presents emergency department for evaluation of acute left lower lateral rib/chest wall pain. He missed the last step of a stepladder when he was descending it 2 weeks ago. He fell backwards striking his back and ribs on a counter. He did not strike his head or lose consciousness. He does have a history of atrial fibrillation status post ablation as well as a pacemaker in place. He is anticoagulated on Eliquis. He denies any headache slurred speech or focal weakness. He declined CT of the head today though he does report that a few years ago he fell struck his head and did have a small brain bleed. He is here today because he continues to have left-sided rib pain. He is denying any chest pain shortness of air or hemoptysis. Review of Systems Constitutional: denies: Fever, Chills Eyes: reports: Reviewed and negative Throat: reports: Reviewed and negative Cardiac: reports: Other (Left lower lateral chest wall pain). denies: Chest pain / pressure, Palpitations Respiratory: denies: Dyspnea, Cough, Hemoptysis GI: reports: Reviewed and negative : reports: Reviewed and negative Skin: reports: Reviewed and negative Musculoskeletal: reports: Back pain Neurologic: reports: Reviewed and negative PD PAST MEDICAL HISTORY - Past Medical History Cardiovascular: Hypertension, High cholesterol, Coronary artery disease Endocrine/Autoimmune: Type 2 diabetes - Past Surgical History Past Surgical History: Yes Cardiovascular: Coronary stent, AAA - Present Medications Home Medications: Ambulatory Orders Medication Instructions Recorded Confirmed Atorvastatin [Lipitor] 02/13/14 02/13/14 Losartan [Cozaar] 02/13/14 02/13/14 Metformin HCl 500 mg PO BID 02/13/14 02/13/14 Metoprolol Tartrate 02/13/14 02/13/14 Pioglitazone [Actos] 45 mg PO DAILY 02/13/14 02/13/14 Sulfamethoxazole/Trimethoprim 1 each PO BID #14 tablet 02/13/14 [Sulfamethoxazole-Tmp Ds Tablet] Sulfamethoxazole/Trimethoprim 1 each PO BID #14 tablet 01/18/18 [Sulfamethoxazole-Tmp Ds Tablet] - Allergies Allergies/Adverse Reactions: Allergies Allergy/AdvReac Type Severity Reaction Status Date / Time No Known Drug Allergies Allergy Verified 07/25/21 13:38 - Social History Does the pt smoke?: No Smoking Status: Never smoker Does the pt drink ETOH?: Yes Does the pt have substance abuse?: No - POLST Patient has POLST: No PD ED PE EXPANDED - General General: Alert, No acute distress, Well developed/nourished - HEENT HEENT: Atraumatic, PERRL, EOMI - Neck Neck: Supple w/out meningeal sx. No: Adenopathy - Cardiac Cardiac: Regular Rate, Radial strong equal, Pedal strong equal, Cap refill < 2 s ec - Respiratory Respiratory: Clear to ausultation catherine. No: Distress, Labored - Back Back: Other (Left lower lateral chest wall and rib pain without crepitus ecchymosis or erythema. No midline cervical thoracic or lumbar tenderness elicited. Normal gait.) - Derm Derm: Normal color, Warm and dry. No: Rash, Abrasion (s), Bruising - Neuro Neuro: Alert and Oriented X 3, CNII-XII intact, Normal gait, Normal finger nose, Normal speech - GCS Eye Opening: Spontaneous Motor: Obeys Commands Verbal: Oriented Total: 15 Results - Vitals Vitals: Vital Signs - 24 hr 07/25/21 13:34 Temperature 36.1 C L Heart Rate 58 L Respiratory 16 Rate Blood Pressure 106/68 O2 Saturation 100 Oxygen O2 Source Room air - Labs Labs: Laboratory Tests 07/25/21 07/25/21 13:47 13:47 WBC 4.8 RBC 4.63 L Hgb 15.6 Hct 45.6 MCV 98.5 H MCH 33.7 H MCHC 34.2 RDW 12.8 Plt Count 154 MPV 10.4 Neut # (Auto) 3.0 Lymph # (Auto) 1.1 L [place] # (Auto) 0.5 Eos # (Auto) 0.2 Baso # (Auto) 0.1 Absolute Nucleated RBC 0.00 Nucleated RBC % 0.0 Sodium 135 Potassium 4.3 Chloride 97 L Carbon Dioxide 28 Anion Gap 10.0 BUN 23 H Creatinine 1.4 H Estimated GFR (MDRD) 49 L Glucose 199 H Calcium 9.3 Total Bilirubin 0.8 AST 50 H ALT 48 Alkaline Phosphatase 54 Total Protein 7.7 Albumin 4.3 Globulin 3.4 Albumin/Globulin Ratio 1.3 Lipase 45 - Rads (name of study) ribs with PA chest Radiology: Final report received (No displaced left rib fractures seen. No acute cardiopulmonary pathology.) PD MEDICAL DECISION MAKING - ED course Complexity details: reviewed results, re-evaluated patient, considered differential, d/w patient ED course: This is a very well-appearing and spry 80-year-old male that comes to the emergency department with 2 weeks of left-sided lower lateral chest wall and rib wall pain after falling from the bottom step of a stepladder about 2 weeks ago. He is anticoagulated on Eliquis and did not strike his head. He adamantly declines a CT of his head or chest today. Cardiopulmonary auscultation is unremarkable. Though he is cardiac paced. He has no wheeze hypoxia or hemoptysis. A rib series x-ray does not show any obviously displaced rib fractures given that the fall was nearly 2 weeks ago and there are no findings suggest effusion or pneumothorax it is likely that he has a rib wall contusion though an occult fracture is not ruled out. He does find that in general Tylenol helps control his symptoms. I did offer some oxycodone for nighttime use but he declined this today. We also discussed that lidocaine patches may be helpful and he will likely fill that at the pharmacy. We discussed emergent return precautions which would include worsening symptoms hemoptysis severe shortness of air or exertional chest pain. Departure - Departure Disposition: 01 Home, Self Care Clinical Impression: Chest wall contusion Qualifiers: Encounter type: initial encounter Laterality: left Qualified Code(s): S20.212A - Contusion of left front wall of thorax, initial encounter Condition: Stable Record reviewed to determine appropriate education?: Yes Instructions: ED Contusion Chest Wall Ch Comments: Theodore you are seen today in the emergency department because of pain on the left lower side of your chest and rib wall after a fall 2 weeks ago. The x-rays of your ribs and chest do not show an obvious broken bone. This does not mean that a subtle or occult fracture is not there. I recommend that you continue the use of Tylenol for pain control at home. You may also find some benefit from the use of Salonpas or lidocaine patches over the area of ribs where you are tender. If you find your symptoms or not improving, you have any bloody sputum, severe shortness of air or chest pain that gets worse when you walk then you should return immediately to the ER for a second evaluation. In the future should you have any significant falls at home it is important you do come to the ER because you are anticoagulated on Eliquis and there is a risk of intracranial hemorrhage or bleeding within your abdomen.
--- NOTE | 2021-07-25 14:41 | XRAY Report ---
PROCEDURE: Ribs w/PA Chest LT INDICATIONS: fall 2 weeks ago; hit counter; ? rib fx TECHNIQUE: 3 views of the left ribs were acquired, along with a single view chest. COMPARISON: None FINDINGS: Surgical changes and devices: Left chest wall pacemaker leads are in the region of and right ventricl e and left ventricle. Bones and chest wall: No fractures or dislocations. No suspicious bony lesions. Overlying soft tis sues appear unremarkable. Lungs and pleura: No pleural effusions or pneumothorax. Lungs appear clear. Mediastinum: Mediastinal contours appear normal. Heart size is normal. IMPRESSION: No displaced left rib fracture is seen. No acute cardiopulmonary pathology. Reviewed by: Jacek Gregg MD on 07/25/2021 2:40 PM PDT Approved by: Jacek Gregg MD on 07/25/2021 2:40 PM PDT Station ID: [id number]
== END 2021-07-25 14:53 | disposition home or self-care (01) ==
LOC: ED 13:02
DX: S20.212A Contusion of left front wall of thorax, initial encounter (principal); W11.XXXA Fall on and from ladder, initial encounter; I48.91 Unspecified atrial fibrillation; Z79.01 Long term (current) use of anticoagulants; Z95.0 Presence of cardiac pacemaker; R07.89 Other chest pain; E11.9 Type 2 diabetes mellitus without complications; Z79.84 Long term (current) use of oral hypoglycemic drugs
CPT/HCPCS: 36415; 80053; 83690; 85025; 99282; 99284